=== PATIENT | male | born 1995 | race African-American/Black ===

== ENCOUNTER 2017-02-26 16:04 | Emergency (ER) | payer OTHER ==
[~2017-02-26 16:04] MED LIST: MOTRIN600 M2 PO; NO MEDICATIONS; SOMATROPIN SUBQ; ZOFRAN ODT4 MG PO; [UNRECOGNIZED DRUG - OTHER] SUBQ
[2017-02-26 17:22] LABS: URINE SOURCE CLEAN CATCH
[2017-02-26 17:25] LABS: MICRO INDICATED? NO; URINE APPEARANCE CLEAR; URINE BILIRUBIN NEG (NEG); URINE BLOOD NEG (NEG); URINE COLOR YELLOW; URINE GLUCOSE NEG (NORM); URINE KETONE NEG (NEG); URINE LEUKOCYTE ESTERASE NEG (NEG); URINE NITRATE NEG (NEG); URINE PROTEIN NEG (NEG); URINE UROBILINOGEN 0.2 MG/DL (NORM)
== END 2017-02-26 18:17 | disposition home or self-care (01) ==
LOC: SED 16:04
PROVIDERS: Physician Assistant
DX: S39.012A Strain of muscle, fascia and tendon of lower back, initial encounter (principal); M25.561 Pain in right knee; F17.200 Nicotine dependence, unspecified, uncomplicated; X50.1XXA Overexertion from prolonged static or awkward postures, initial encounter; Y92.009 Unspecified place in unspecified non-institutional (private) residence as the place of occurrence of the external cause
CPT/HCPCS: 81003; 96372; 99283; J1885; J2360